=== PATIENT | male | born 1975 | race Caucasian/White ===

== ENCOUNTER 2025-01-19 20:43 | Emergency (ER) | payer OTHER ==
[~2025-01-19] VITALS: Ht 177.8 cm; Wt 74.8 kg
[2025-01-19 21:06] VITALS: TEMP 98.1
[2025-01-19] MEDS ORDERED: KETOROLAC TROMETHAMINE INJ 30 MG/ML VIAL ONE (21:45)
[2025-01-19] MEDS: KETOROLAC TROMETHAMINE 15 MG/ML VIAL IV ONE ×2 (21:49→23:03)
[2025-01-19 22:01] LABS: BASOPHILS % (AUTO) 0.3 % (0.0-2.0); EOSINOPHILS # (AUTO) 0.1 K/uL (0.0-0.7); EOSINOPHILS % (AUTO) 1.3 % (0.0-6.0); HEMATOCRIT 43 % (39-51); HEMOGLOBIN 14.9 g/dL (13.5-17.5); LYMPHOCYTES # (AUTO) 1.6 K/uL (0.8-4.8); LYMPHOCYTES % (AUTO) 18.1 % (20.0-44.0); MEAN CORPUSCULAR HEMOGLOBIN 31 PG (26.0-33.0); MEAN CORPUSCULAR HGB CONC 34 g/dl (31.0-36.0); MEAN CORPUSCULAR VOLUME 91 fL (80-96); MONOCYTES # (AUTO) 0.5 K/uL (0.1-1.30); MONOCYTES % (AUTO) 5.7 % (2.0-12.0); NEUTROPHILS # (AUTO) 6.4 K/uL (1.8-8.9); NEUTROPHILS % (AUTO) 74.6 % (43.0-81.0); PLATELET COUNT (AUTO) 227 K/uL (150-450); RED BLOOD CELL COUNT(AUTO) 4.78 MIL/uL (4.5-6.0); RED CELL DISTRIBUTION WIDTH 12.8 % (11.5-15.0); WHITE BLOOD COUNT (AUTO) 8.6 K/uL (4.3-11.0)
[2025-01-19 22:08] LABS: CALCIUM, SERUM 9.1 mg/dL (8.5-10.1)
[2025-01-19] MEDS ORDERED: MORPHINE SULFATE INJ 4 MG/ML DISP.SYRIN ONE (22:19)
[2025-01-19] MEDS ORDERED: ONDANSETRON HCL/PF 4 MG/2 ML VIAL ONE (22:19)
[2025-01-19 22:21] LABS: APPEARANCE,URINE CLEAR (CLEAR); BILIRUBIN,URINE NEGATIVE (NEGATIVE); BLOOD, URINE NEGATIVE Ery/uL (NEGATIVE); COLOR,URINE YELLOW (YELLOW); KETONES,URINE NEGATIVE (NEGATIVE); LEUKOCYTE ESTERASE ,URINE NEGATIVE (NEGATIVE); NITRITE, URINE NEGATIVE (NEGATIVE); PH,URINE 6.5 (5.0-8.0); PROTEIN,URINE NEGATIVE (NEGATIVE); UGLUCOSE NEGATIVE (NEGATIVE); UROBILINOGEN,URINE 0.2 EU/dL (0.2)
[2025-01-19] MEDS: ONDANSETRON HCL/PF 4 MG/2 ML VIAL IVP ONE (22:25)
[2025-01-19] MEDS: IV NS 0.9% 1,000 ML BAG IV ONE (22:25)
[2025-01-19] MEDS: MORPHINE SULFATE INJ 4 MG/ML DISP.SYRIN IV ONE (22:25)
[2025-01-19] MEDS ORDERED: KETOROLAC TROMETHAMINE 15 MG/ML VIAL ONE (23:00)
[2025-01-19] MEDS ORDERED: IBUP-1957 PO (23:35)
[2025-01-19 23:46] VITALS: BP 144/91; O2SAT 100
== END 2025-01-19 23:47 | disposition home or self-care (01) ==
LOC: ER 20:46
DX: R10.84 Generalized abdominal pain (principal); R11.0 Nausea; Z79.1 Long term (current) use of non-steroidal anti-inflammatories (NSAID); Z60.2 Problems related to living alone
CPT/HCPCS: 99285; 74176; 96374; 96375; 96361; 96376; 85025; 80048; 81003; 36415; J1885 ×2; J2270; J2405; J7030